=== PATIENT | female | born 1975 | race Caucasian/White ===

== ENCOUNTER → 2019-07-23 | Day surgery (SDC) | payer OTHER ==
[~2019-07-23] VITALS: Ht 177.8 cm; Wt 113.4 kg
[2019-07-23] VITALS (7 sets, daily range): BP systolic 90–109; BP diastolic 34–49
[~2019-07-23] MED LIST: FENTANYL CITRATE/PF 50MCG/ML 2ML VIAL ONE; LIDOCAINE HCL 1% 20ML VIAL (Pyxis) INJ ONE; SODIUM BICARBONATE 4% (2.4MEQ) 5ML VIAL IV ONE
[2019-07-23 07:54] LABS: INR 1.3; PARTIAL THROMBOPLASTIN TIME 29.7 sec (23.4-31.0); PROTHROMBIN TIME 13.2 sec (9.6-11.0)
[2019-07-23 07:56] LABS: HEMATOCRIT. 24.3 % (36.0-48.0); HEMOGLOBIN. 7.8 g/dL (12.0-16.0); MEAN CORPUSCULAR HEMOGLOBIN 35.1 pg (28.0-32.0); MEAN CORPUSCULAR VOLUME 109.6 fL (81.0-99.0); MEAN PLATELET VOLUME 7.9 fl (7.4-10.4); PLATELET 132 x1000/uL (130-400); RED BLOOD CELL COUNT 2.21 mill/uL (4.2-5.4); RED CELL DISTRIBUTION WIDTH 20.6 % (11.6-14.6)
[2019-07-23 13:22] LABS: PLATELET ESTIMATE NORMAL
== END | disposition home or self-care (01) ==
LOC: RADANGIO 06:59
PROVIDERS: ATTEND Internal Medicine Nephrology
DX: I12.0 Hypertensive chronic kidney disease with stage 5 chronic kidney disease or end stage renal disease (principal); N18.6 End stage renal disease; M79.89 Other specified soft tissue disorders; E78.5 Hyperlipidemia, unspecified; E66.9 Obesity, unspecified; E03.9 Hypothyroidism, unspecified; Z99.2 Dependence on renal dialysis
CPT/HCPCS: 36415; 36901; 82947; 84132; 85025; 85610; 85730; C1769; C1887; J3490; J3010